=== PATIENT | male | born 1990 | race Caucasian/White ===

== ENCOUNTER 2020-03-24 16:05 | Emergency (ER) | payer BC ==
[2020-03-24 16:14] VITALS: PULSE 84; RESP 18; TEMP 98.8
[2020-03-24] MEDS ORDERED: SODIUM CHLORIDE 0.9% 1,000 ML IV STA (17:20)
[2020-03-24] MEDS ORDERED: KETOROLAC 15 MG/ML 1 ML VIAL IVP STA (17:20)
[2020-03-24] MEDS ORDERED: FAMOTIDINE 20 MG/2 ML VIAL IV STA (17:23)
--- NOTE | 2020-03-24 17:27 | ED ---
General Adult HPI - General Chief complaint: Abdominal Pain Stated complaint: abd pain Time Seen by Provider: 03/24/20 16:55 Source: patient, RN notes reviewed Mode of arrival: ambulatory Limitations: no limitations - History of Present Illness Initial comments: Patient is a pleasant 29-year-old male presenting to the emergency Department with complaints of abdominal discomfort. Onset of symptoms was 2 days ago. Patient has discomfort right upper abdomen. Discomfort is positional. Discomfort is also worse with eating food. No history of similar symptoms previously. No nausea vomiting. Possible mild constipation. No diarrhea. No fevers. No dysuria or hematuria. Symptoms are mild at this time. - Related Data Previous Rx's Medication Instructions Recorded Dicyclomine [Bentyl] 20 mg PO QID PRN #15 tablet 03/24/20 Pantoprazole [Protonix] 1 tab PO DAILY #30 tablet. 03/24/20 Allergies Allergy/AdvReac Type Severity Reaction Status Date / Time codeine Allergy Unknown Verified 03/24/20 20:05 Review of Systems ROS Statement: Those systems with pertinent positive or pertinent negative responses have been documented in the HPI. ROS Other: All systems not noted in ROS Statement are negative. Constitutional: Denies: fever Eyes: Denies: eye pain ENT: Denies: ear pain Respiratory: Denies: cough Cardiovascular: Denies: chest pain Endocrine: Denies: fatigue Gastrointestinal: Reports: as per HPI, abdominal pain. Denies: nausea, vomiting Genitourinary: Denies: urgency, dysuria, hematuria Musculoskeletal: Denies: back pain Skin: Denies: rash Neurological: Denies: weakness Past Medical History Past Medical History: No Reported History History of Any Multi-Drug Resistant Organisms: None Reported Past Surgical History: No Surgical Hx Reported Past Psychological History: No Psychological Hx Reported Smoking Status: Never smoker Past Alcohol Use History: Occasional Past Drug Use History: None Reported General Exam Limitations: no limitations General appearance: alert, in no apparent distress Head exam: Present: normocephalic Eye exam: Present: normal appearance Neck exam: Present: normal inspection Respiratory exam: Present: normal lung sounds bilaterally. Absent: chest wall tenderness Cardiovascular Exam: Present: regular rate, normal rhythm Expanded Peripheral pulses: 2+: Dorsalis Pedis (R), Dorsalis Pedis (L) GI/Abdominal exam: Present: soft, tenderness (Mild to moderate tenderness right upper quadrant). Absent: distended, guarding, rebound, rigid Extremities exam: Present: normal inspection Neurological exam: Present: alert Psychiatric exam: Present: normal affect, normal mood Skin exam: Present: normal color Course Vital Signs 03/24/20 03/24/20 16:12 20:53 Temperature 98.8 F 98.8 F Pulse Rate 84 84 Respiratory 18 18 Rate Blood Pressure 120/70 129/72 O2 Sat by Pulse 98 100 Oximetry Medical Decision Making - Medical Decision Making Computed tomography scan of the abdomen and pelvis reveals no acute process. Patient and family updated. Patient has mild improvement. Patient updated on need for follow-up and further testing and to return if symptoms worsen. - Lab Data Result diagrams: 03/24/20 18:21 03/24/20 18:21 Lab Results 03/24/20 03/24/20 03/24/20 Range/Units 18:21 18:21 18:21 WBC 9.5 (3.8-10.6) k/uL RBC 5.08 (4.30-5.90) m/uL Hgb 14.5 (13.0-17.5) gm/dL Hct 42.6 (39.0-53.0) % MCV 83.9 (80.0-100.0) fL MCH 28.5 (25.0-35.0) pg MCHC 33.9 (31.0-37.0) g/dL RDW 12.9 (11.5-15.5) % Plt Count 239 (150-450) k/uL MPV 6.6 Neutrophils % 66 % Lymphocytes % 23 % Monocytes % 6 % Eosinophils % 2 % Basophils % 1 % Neutrophils # 6.2 (1.3-7.7) k/uL Lymphocytes # 2.2 (1.0-4.8) k/uL Monocytes # 0.6 (0-1.0) k/uL Eosinophils # 0.2 (0-0.7) k/uL Basophils # 0.1 (0-0.2) k/uL PT (9.0-12.0) sec INR (<1.2) APTT (22.0-30.0) sec Sodium 137 (137-145) mmol/L Potassium 4.1 (3.5-5.1) mmol/L Chloride 103 (98-107) mmol/L Carbon Dioxide 26 (22-30) mmol/L Anion Gap 8 mmol/L BUN 16 (9-20) mg/dL Creatinine 0.73 (0.66-1.25) mg/dL Est GFR (CKD-EPI)AfAm >90 (>60 ml/min/1.73 sqM) Est GFR (CKD-EPI)NonAf >90 (>60 ml/min/1.73 sqM) Glucose 84 (74-99) mg/dL Calcium 9.2 (8.4-10.2) mg/dL Total Bilirubin 0.6 (0.2-1.3) mg/dL AST 31 (17-59) U/L ALT 35 (4-49) U/L Alkaline Phosphatase 56 (38-126) U/L Total Protein 7.3 (6.3-8.2) g/dL Albumin 4.1 (3.5-5.0) g/dL Amylase 43 (30-110) U/L Lipase 47 (23-300) U/L Urine Color Yellow Urine Appearance Clear (Clear) Urine pH 5.5 (5.0-8.0) Ur Specific [place] 1.027 (1.001-1.035) Urine Protein Trace H (Negative) Urine Glucose (UA) Trace H (Negative) Urine Ketones Negative (Negative) Urine Blood Negative (Negative) Urine Nitrite Negative (Negative) Urine Bilirubin Negative (Negative) Urine Urobilinogen <2.0 (<2.0) mg/dL Ur Leukocyte Esterase Negative (Negative) 03/24/20 Range/Units 18:21 WBC (3.8-10.6) k/uL RBC (4.30-5.90) m/uL Hgb (13.0-17.5) gm/dL Hct (39.0-53.0) % MCV (80.0-100.0) fL MCH (25.0-35.0) pg MCHC (31.0-37.0) g/dL RDW (11.5-15.5) % Plt Count (150-450) k/uL MPV Neutrophils % % Lymphocytes % % Monocytes % % Eosinophils % % Basophils % % Neutrophils # (1.3-7.7) k/uL Lymphocytes # (1.0-4.8) k/uL Monocytes # (0-1.0) k/uL Eosinophils # (0-0.7) k/uL Basophils # (0-0.2) k/uL PT 10.4 (9.0-12.0) sec INR 1.0 (<1.2) APTT 27.2 (22.0-30.0) sec Sodium (137-145) mmol/L Potassium (3.5-5.1) mmol/L Chloride (98-107) mmol/L Carbon Dioxide (22-30) mmol/L Anion Gap mmol/L BUN (9-20) mg/dL Creatinine (0.66-1.25) mg/dL Est GFR (CKD-EPI)AfAm (>60 ml/min/1.73 sqM) Est GFR (CKD-EPI)NonAf (>60 ml/min/1.73 sqM) Glucose (74-99) mg/dL Calcium (8.4-10.2) mg/dL Total Bilirubin (0.2-1.3) mg/dL AST (17-59) U/L ALT (4-49) U/L Alkaline Phosphatase (38-126) U/L Total Protein (6.3-8.2) g/dL Albumin (3.5-5.0) g/dL Amylase (30-110) U/L Lipase (23-300) U/L Urine Color Urine Appearance (Clear) Urine pH (5.0-8.0) Ur Specific [place] (1.001-1.035) Urine Protein (Negative) Urine Glucose (UA) (Negative) Urine Ketones (Negative) Urine Blood (Negative) Urine Nitrite (Negative) Urine Bilirubin (Negative) Urine Urobilinogen (<2.0) mg/dL Ur Leukocyte Esterase (Negative) - Radiology Data Radiology results: report reviewed (Ultrasound shows no evidence of gallstones or dilated ducts with gallbladder ultrasound), image reviewed (Abdominal x-ray shows nonacute abdomen. Multiple screws) leg bone. Chest x-ray shows no acute process.) Disposition Clinical Impression: Abdominal pain Disposition: HOME SELF-CARE Condition: Stable Instructions (If sedation given, give patient instructions): Abdominal Pain (ED ) Additional Instructions: Please follow-up with primary care physician in the next day or 2 for recheck. Return for fever, increased pain, uncontrolled vomiting, worsening or change in symptoms or other concerns. Consider outpatient HIDA scan or endoscopy. Prescription has been sent to your pharmacy, [facility] in [place] Prescriptions: Dicyclomine [Bentyl] 20 mg PO QID PRN #15 tablet PRN Reason: Gi Upset Pantoprazole [Protonix] 1 tab PO DAILY #30 tablet.dr Is patient prescribed a controlled substance at d/c from ED?: No Referrals: Raudel Alexandra MD [Primary Care Provider] - 1-2 days Time of Disposition: 21:04
[2020-03-24 18:39] LABS: Basophils # (A) 0.1 k/uL (0-0.2); Basophils % (A) 1 %; Eosinophils # (A) 0.2 k/uL (0-0.7); Eosinophils % (A) 2 %; HCT 42.6 % (39.0-53.0); HGB 14.5 gm/dL (13.0-17.5); Lymphocytes # (A) 2.2 k/uL (1.0-4.8); Lymphocytes % (A) 23 %; MCH 28.5 pg (25.0-35.0); MCHC 33.9 g/dL (31.0-37.0); MCV 83.9 fL (80.0-100.0); Mean Platelet Volume 6.6; Monocytes # (A) 0.6 k/uL (0-1.0); Monocytes % (A) 6 %; Neutrophils # (A) 6.2 k/uL (1.3-7.7); Neutrophils % (A) 66 %; Platelet Count 239 k/uL (150-450); RBC 5.08 m/uL (4.30-5.90); RDW 12.9 % (11.5-15.5); WBC 9.5 k/uL (3.8-10.6)
[2020-03-24 18:42] LABS: Appearance,Urine Clear (Clear); Bilirubin,Urine Negative (Negative); Blood,Urine Negative (Negative); Color,Urine Yellow; Glucose,Urine (UA) Trace (Negative); Ketones,Urine Negative (Negative); Leukocyte Esterase,Urine Negative (Negative); Nitrite,Urine Negative (Negative); PH, Urine 5.5 (5.0-8.0); Protein,Urine Trace (Negative); Specific Gravity,Urine 1.027 (1.001-1.035); Urobilinogen,Urine <2.0 mg/dL (<2.0)
[2020-03-24 18:51] LABS: ALT 35 U/L (4-49); AST 31 U/L (17-59); African American GFR (CKD) >90 (>60 ml/min/1.73 sqM); Albumin 4.1 g/dL (3.5-5.0); Alkaline Phosphatase 56 U/L (38-126); Amylase 43 U/L (30-110); Anion Gap 8 mmol/L; Blood Urea Nitrogen 16 mg/dL (9-20); Calcium 9.2 mg/dL (8.4-10.2); Carbon Dioxide 26 mmol/L (22-30); Chloride 103 mmol/L (98-107); Glucose 84 mg/dL (74-99); Lipase 47 U/L (23-300); Non-African American GFR(CKD) >90 (>60 ml/min/1.73 sqM); Potassium 4.1 mmol/L (3.5-5.1); Sodium 137 mmol/L (137-145); Total Bilirubin 0.6 mg/dL (0.2-1.3); Total Protein 7.3 g/dL (6.3-8.2)
[2020-03-24 19:05] LABS: Partial Thromboplastin Time 27.2 sec (22.0-30.0); Prothrombin Time 10.4 sec (9.0-12.0)
--- NOTE | 2020-03-24 19:13 | XR ---
EXAMINATION TYPE: XR KUB DATE OF EXAM: 03/24/2020 COMPARISON: NONE HISTORY: Abdominal pain TECHNIQUE: 2 views FINDINGS: 2 views were obtained supine at show no sign of intestinal obstruction or pneumoperitoneum. Fecal pattern is normal. There is no evidence of a mass. There are multiple screws fixing the right iliac bone. There are no pathologic calcification over the kidneys. IMPRESSION: Nonacute abdomen.
--- NOTE | 2020-03-24 19:14 | XR ---
EXAMINATION TYPE: XR chest 1V portable DATE OF EXAM: 03/24/2020 COMPARISON: 01/29/2016 HISTORY: Abdominal pain TECHNIQUE: Single view FINDINGS: There is no heart failure nor confluent pneumonic infiltrate. Costophrenic angles are clear . There are no hilar masses. Bony thorax is intact. IMPRESSION: No active cardiopulmonary disease. No change.
--- NOTE | 2020-03-24 19:16 | US ---
EXAMINATION TYPE: US gallbladder DATE OF EXAM: 03/24/2020 COMPARISON: NONE CLINICAL HISTORY: ruq pain. ruq pain x 4 days, pain under ribs, no nausea EXAM MEASUREMENTS: Liver Length: 18.6 cm Gallbladder Wall: 0.2 cm CBD: 0.6 cm Right Kidney: 11.2 x 4.8 x 5.3 cm Pancreas: not seen due to bowel gas Liver: difficult to penetrate, upper limits of normal for size Gallbladder: wnl Evidence for sonographic Lynch's sign: no CBD: wnl Right Kidney: wnl IMPRESSION: Negative exam. No gallstones or dilated ducts.
--- NOTE | 2020-03-24 20:27 | CT ---
EXAMINATION TYPE: CT abdomen pelvis w con DATE OF EXAM: 03/24/2020 COMPARISON: 01/29/2016 HISTORY: Abdominal pain under RT rib since Tuesday. Hx pelvic sx. CT DLP: 1810.9 mGycm Automated exposure control for dose reduction was used. CONTRAST: Performed with IV Contrast, patient injected with 100 mL of Isovue 300. Images were obtained from the diaphragm to the floor the pelvis with IV contrast. There is minimal subsegmental atelectasis at the right posterior lung base. There is some fatty infil tration of the liver. Gallbladder appears normal. Bile ducts are not dilated. Spleen stomach pancreas appear intact. There is no adrenal mass. Kidneys show satisfactory contrast opacification. There is no hydronephrosi s. Delayed images show normal renal excretion. Ureters are not dilated. There is no retroperitoneal a denopathy. Appendix is inferior and appears normal. There is metal artifact from screws fixing the ri ght iliac bone. Bladder distends smoothly. There is no inguinal hernia. There is no free fluid in the pelvis. There is no mesenteric edema. There is no ascites or free air. There is no bowel obstruction. Lumbar vertebra have normal spacing and alignment. There is no compression fracture. The hip joints a re intact. IMPRESSION: There is some fatty infiltration of the liver increased compared to old exam. No sign of acute abdome n and pelvis. No rib fracture seen.
[2020-03-24 20:53] VITALS: BP 129/72
== END 2020-03-24 21:22 | disposition home or self-care (01) ==
LOC: EC 16:05
DX: R10.11 Right upper quadrant pain (principal); Z88.5 Allergy status to narcotic agent
CPT/HCPCS: 36415; 80053; 82150; 83690; 85025; 85610; 85730; 81003; 71045; 74018; 76705; 74177; 99284; 96374; 96375; 96361 ×3; J1885; Q9967

== ENCOUNTER → 2024-03-01 | Outpatient (CLI) | payer BC | END | disposition home or self-care (01) | LOC: LABWHC1 09:55 | PROVIDERS: ATTEND Internal Medicine | DX: K21.9 Gastro-esophageal reflux disease without esophagitis (principal) | CPT/HCPCS: 87338 ==

== ENCOUNTER → 2024-03-06 | Outpatient (CLI) | payer BC ==
--- NOTE | 2024-03-06 10:09 | US ---
EXAMINATION TYPE: US abdomen complete DATE OF EXAM: 03/06/2024 COMPARISON: CT 2020, US 2020 CLINICAL INDICATION: Male, 33 years old with history of K21.9 GERD; GERD, RUQ pain TECHNIQUE: Grayscale and color Doppler imaging of the abdomen was performed. FINDINGS: EXAM MEASUREMENTS: Liver Length: 18.3 cm Gallbladder Wall: 0.3 cm CBD: 1.2 cm, color Doppler imaging was utilized to isolate the common bile duct for measurement. Spleen: 11.2 cm Right Kidney: 12.1 x 6.5 x 5.4 cm Left Kidney: 11.9 x 5.3 x 5.3 cm EDGER MACHINE SETTER NOTES: Exam is limited due to gas Pancreas: Tail was obscured. Limited. No abnormalities seen. Liver: Limited. Appears enlarged. *Increased echogenicity and attenuation. Gallbladder: *Echogenic material seen within the gallbladder: 4.2 x 2.5 x 2.3 cm. *Hypoechoic area seen adjacent to the gallbladder: 1.0 x 1.0 x 0.5 cm. 2 hyperechoic areas seen that appear to be attached to the gallbladder wall. Larger area measures 0.9 x 0.7 x 0.6 cm. Evidence for sonographic Lynch's sign: No CBD: Appears dilated Spleen: wnl Right Kidney: Hypoechoic indeterminate area seen lower pole: 1.3 x 1.2 x 1.2 cm. Left Kidney: No hydronephrosis or masses seen Upper IVC: wnl Abd Aorta: Only proximal segment was seen. IMPRESSION: 1. Mild hepatomegaly. Pattern of the liver can be associated with hepatic steatosis or underlying hep atocellular disease. Correlate clinically. Area of reduced echogenicity adjacent to the gallbladder f jonathan may represent an area of focal fatty sparing. 2. Gallbladder sludge with suspected adherent gallstones or polyps. The CBD appears dilated. Distal C BD stone or obstruction is in the differential diagnosis. Recommend correlation with CT scan. 3. Indeterminate right renal lesion too small to characterize but retrospectively stable from the CT scan 2020 and therefore likely benign [facility], , 03/06/2024 10:07 AM
== END | disposition home or self-care (01) ==
LOC: RADUSWWP 08:20
PROVIDERS: ATTEND Internal Medicine
DX: K21.9 Gastro-esophageal reflux disease without esophagitis (principal); R16.0 Hepatomegaly, not elsewhere classified
CPT/HCPCS: 76700

== ENCOUNTER → 2024-03-06 | Outpatient (CLI) | payer BC ==
[2024-03-06 16:26] LABS: Basophils # (A) 0.04 X 10*3/uL (0.00-0.10); Basophils % (A) 0.6 %; Eosinophils # (A) 0.14 X 10*3/uL (0.04-0.35); HCT 44.9 % (39.6-50.0); HGB 14.3 g/dL (13.0-17.0); Lymphocytes # (A) 2.14 X 10*3/uL (0.90-5.00); Lymphocytes % (A) 31.1 %; MCHC 31.8 g/dL (32.0-37.0); MCV 84.7 FL (80.0-97.0); Mean Platelet Volume 9.4 FL (9.5-12.2); Monocytes # (A) 0.62 X 10*3/uL (0.20-1.00); NRBC Per 100 WBC 0 X 10*3/uL (0.00-0.01); Neutrophils # (A) 3.92 X 10*3/uL (1.80-7.70); Neutrophils % (A) 56.9 %; Platelet Count 294 X 10*3/uL (140-440); RDW 13.8 % (11.5-14.5); WBC 6.89 X 10*3/uL (4.50-10.00)
[2024-03-06 16:53] LABS: ALT 32 U/L (10-49); AST 20 U/L (14-35); Albumin 4.5 g/dL (3.8-4.9); Albumin/Globulin Ratio 1.67 Ratio (1.60-3.17); Alkaline Phosphatase 60 U/L (41-126); BUN/Creat Ratio 18.11 Ratio (12.00-20.00); Blood Urea Nitrogen 16.3 mg/dL (9.0-27.0); Calcium 9.6 mg/dL (8.7-10.3); Carbon Dioxide 27.2 mmol/L (21.6-31.8); Chloride 102 mmol/L (96-109); Globulin 2.7 g/dL (1.6-3.3); Glucose 97 mg/dL (70-110); Potassium 4.6 mmol/L (3.5-5.5); Sodium 141 mmol/L (135-145); Total Bilirubin 0.5 mg/dL (0.3-1.2); Total Protein 7.2 g/dL (6.2-8.2)
== END | disposition home or self-care (01) ==
LOC: LABWHC1 08:52
PROVIDERS: ATTEND Internal Medicine
DX: Z00.00 Encounter for general adult medical examination without abnormal findings (principal); Z11.59 Encounter for screening for other viral diseases
CPT/HCPCS: 36415; 80053; 80061; 84443; 85025; 86803

== ENCOUNTER → 2024-04-10 | Outpatient (CLI) | payer BC ==
--- NOTE | 2024-04-10 09:11 | MR ---
EXAMINATION TYPE: MR MRCP DATE OF EXAM: 04/10/2024 8:28 AM COMPARISON: Ultrasound abdomen March 06, 2024 and older studies CLINICAL INDICATION: Male, 33 years old with history of K83.8 OTHER SPECIFIED DISEASES OF BILIARY TRA CT, Fatty liver disease, abnormal Imaging IV Contrast: cc (None if empty) Standard multiplanar, multisequence MRI departmental protocol Multiplanar, multisequence images of the abdomen were acquired without contrast. Diffusion weighted i maging was performed. FINDINGS: Liver/gallbladder/pancreas/biliary system: Pancreas remains normal in size without concerning solid o r cystic mass. Some motion artifact limits evaluation of gallbladder, a few tiny intraluminal gallsto kassidy are felt present. No abnormal wall thickening. Liver is normal in size. There is diffuse signal d ropout consistent with mild fatty infiltrative hepatocellular disease. No concerning solid or cystic masses on noncontrast MRI. Common bile duct measures 8 mm which is mildly dilated but not significant ly changed from 2020 CT. No CBD stones identified. There is gradual tapering towards the ampulla. No intrahepatic biliary dilatation. Other: Lung bases are clear. The spleen and both adrenal glands are within normal limits. No hydronep hrosis seen bilaterally. There is 1.2 cm exophytic simple thin-walled cyst posteriorly from the lower pole of the right kidney incidentally noted. No abnormal bowel dilatation. No AAA. Osseous structure s are intact. IMPRESSION: Mild extrahepatic biliary dilatation only up to 8 mm on MRI without CBD stone or signific ant change from 2020 CT. Marked diffuse fatty infiltration of liver is redemonstrated. [facility], , 04/10/2024 9:08 AM
== END | disposition home or self-care (01) ==
LOC: RADMRIMAIN 07:35
PROVIDERS: ATTEND Internal Medicine
DX: K83.8 Other specified diseases of biliary tract (principal); K76.0 Fatty (change of) liver, not elsewhere classified; K80.80 Other cholelithiasis without obstruction
CPT/HCPCS: 74181

== ENCOUNTER 2024-09-03 08:17 | Day surgery (SDC) | payer BC ==
[2024-09-03 08:44] VITALS: TEMP 97.8
[2024-09-03] MEDS: IV FLUID CONTINUATION 1,000 ML IV ONE (08:44)
[2024-09-03] MEDS: LACTATED RINGERS 1,000 ML IV SCH (08:50)
[2024-09-03] MEDS ORDERED: LIDOCAINE 2% (PF) 20 MG/ML 5 ML VIAL ONE (08:55)
[2024-09-03] MEDS ORDERED: PROPOFOL 10 MG/ML 20 ML VIAL IV ONE (08:55)
--- NOTE | 2024-09-03 09:08 | P.PCN ---
Date of Procedure: 09/03/24 Preoperative Diagnosis: GERD Postoperative Diagnosis: GERD Gastritis Procedure(s) Performed: EGD with biopsy Anesthesia: JOHNATHAN Surgeon: Nathaly Moreno Pathology: other (Biopsies of antrum, GE junction, duodenum) Condition: stable Disposition: same day Indications for Procedure: 34-year-old male presented with complaint of history of reflux. He was started on PPI with some improvement. He occasionally still gets a dull ache in the abdomen. Plan is for upper endoscopy for further evaluation. Risks, benefits prior to attending the endoscopy suite. Operative Findings: Gastritis Description of Procedure: The patient was brought into the endoscopy suite and placed in left lateral decubitus position. Adequate sedation was achieved using conscious sedation. A bite-block was placed and an endoscope was placed in the oropharynx and advanced under endoscopic visualization. The endoscope was advanced through the esophagus into the stomach, through the gastric antrum and in through the pylorus. The third portion of duodenum was visualized. The endoscope was then slowly withdrawn. The first portion of duodenum was noted to have mild inflammatory changes. Biopsies were taken. The antrum was noted to have inflammatory changes. Biopsies were taken. The gastric body distended normally and the gastric folds appeared normal and flattened with insufflation. A retroflexed view of the fundus and GE junction revealed no significant hiatal hernia. GE junction appeared normal with no significant inflammatory changes and biopsies were taken. The esophagus appeared endoscopically normal. Excess air was removed and the scope was withdrawn and the procedure was completed. The patient was sent to PACU in stable condition.
[2024-09-03 09:28] VITALS: RESP 16
[2024-09-03 09:47] VITALS: BP 117/81; PULSE 72
== END 2024-09-03 09:48 | disposition home or self-care (01) ==
LOC: ORWHC2ENDO 08:17
PROVIDERS: ATTEND Surgery
DX: K21.9 Gastro-esophageal reflux disease without esophagitis (principal); K29.50 Unspecified chronic gastritis without bleeding; E78.5 Hyperlipidemia, unspecified; K76.0 Fatty (change of) liver, not elsewhere classified; Z79.899 Other long term (current) drug therapy; Z88.5 Allergy status to narcotic agent
CPT/HCPCS: 88305; 43239; J2704; J2003